=== PATIENT | male | born 1980 | race Hispanic/Latino ===

== ENCOUNTER 2022-04-06 13:47 | Observation (INO) | payer SELFPAY ==
[2022-04-06 14:01] LABS: #Lymphocytes 1.2 thou/uL (1.20-3.40); #Monocytes 0.8 thou/uL (0.11-0.59); #Neutrophils 6.4 thou/uL (1.40-6.50); %Basophils 0.4 % (0.0-1.0); %Eosinophils 0.3 % (0.0-10.0); %Lymphocytes 14.5 % (21.0-51.0); %Monocytes 9.3 % (0.0-10.0); %Neutrophils 75.5 % (42.0-75.0); Hemoglobin 16.9 g/dL (14.0-18.0); Mean Corpuscular HGB CONC 33.7 g/dL (32.0-36.0); Mean Platelet Volume 8.3 fL (7.4-10.4); Platelet Count 194 thou/uL (130-400); RBC Distribution Width 11.7 % (11.5-14.5); Red Blood Cell (RBC) Count 4.98 mill/uL (4.70-6.10); White Blood Cell (WBC) Count 8.4 thou/uL (4.8-10.8)
[2022-04-06 14:21] LABS: Acetaminophen Less than 10.0 mcg/mL (10.0-30.0); Alcohol 26 mg/dL (Less than 10); Salicylate Less than 8.0 mg/dL (15.0-30.0)
[2022-04-06 14:23] LABS: Albumin 5.1 g/dL (3.5-5.0); Anion Gap 27 mmol/L (10-20); BUN (Urea Nitrogen) 19 mg/dL (8.9-20.6); Bilirubin, Total 2.3 mg/dL (0.2-1.2); Calc. Creatinine Clearance 0 mL/min (70-130); Calcium 10.9 mg/dL (7.8-10.44); Carbon Dioxide 12 mmol/L (22-29); Chloride 108 mmol/L (98-107); Estimated GFR 26; Globulin 4.1 g/dL (2.4-3.5); Glucose 177 mg/dL (70-105); Potassium 3.5 mmol/L (3.5-5.1); Protein, Total 9.2 g/dL (6.0-8.3); Sodium 143 mmol/L (136-145)
[2022-04-06 14:24] LABS: ALT (SGPT) 147 U/L (8-55); AST (SGOT) 267 U/L (5-34); Alkaline Phosphatase 97 U/L (40-110); CK (CPK) 326 U/L (30-200); Lipase 112 U/L (8-78)
[2022-04-06] MEDS ORDERED: Iopamidol-370 76% 500 ML 1 ML ONE (16:03)
[2022-04-06 17:31] LABS: Troponin I 0.017 ng/mL (< 0.028)
[2022-04-06] MEDS ORDERED: Senokot S 8.6-50 MG TAB PO PRN (17:56)
[2022-04-06] MEDS ORDERED: Lorazepam 1 MG TAB PO PRN (17:56)
[2022-04-06] MEDS ORDERED: Ondansetron PF 4 MG/2 ML Vial IVP PRN (17:56)
[2022-04-06] MEDS ORDERED: Lorazepam 2 MG/ML VIAL SLOW IVP PRN (17:56)
[2022-04-06] MEDS ORDERED: Electrolyte Replacement Protocol 1 EACH FS SCH (18:00)
[2022-04-06] MEDS ORDERED: Melatonin 3 MG TAB PO PRN (18:05)
[2022-04-06 18:06] VITALS: BMI 32.1
[2022-04-06 18:11] LABS: Bacteria/HPF None Seen HPF (None Seen); Bilirubin Negative (Negative); Blood, Urine 2+ (Negative); Clarity Clear (Clear); Glucose, Urine (Dipstick) 50 mg/dL (Negative); Ketone, Urine Negative (Negative); Leukocyte Negative Leu/uL (Negative); Nitrite Negative (Negative); Protein, Urine (Dipstick) 100 mg/dL (Neg-Trace); RBC/HPF 0-3 HPF (0-3); Squamous Epithelial 0-3 HPF (0-3); Urobilinogen Normal mg/dL (Less than 2); pH, Urine 5.5 (5.0-9.0)
[2022-04-06 18:12] LABS: Specific Gravity, Urine 1.055 (1.002-1.036)
[2022-04-06] MEDS ORDERED: Nitroglycerin 0.4 MG TAB (25 Tab Bottle) SL PRN (18:16)
[2022-04-06 18:17] LABS: Amphetamine Detected (NotDetected); Barbiturates Screen Not Detected (NotDetected); Benzodiazepine Screen Not Detected (NotDetected); Cocaine Metabolite Screen Not Detected (NotDetected); Methadone Not Detected (NotDetected); Methamphetamine Detected (NotDetected); Opiate Screen Not Detected (NotDetected); Oxycodone Screen Not Detected (NotDetected); Phencyclidine (PCP) Not Detected (NotDetected); THC/Cannabinoid Screen Not Detected (NotDetected); Tricyclic Screen Not Detected (NotDetected)
[2022-04-06] MEDS: Sodium Chloride 0.9% 1,000 ML IV SCH (18:41)
[2022-04-06] MEDS ORDERED: Multivitamins, Adult 10 ML, Folic Acid 1 MG, Thiamine HCl 100 MG in Dextrose 5 %-0.45 %... IV SCH (18:45)
[2022-04-06] MEDS ORDERED: Multivit, Therapeutic 1 TAB PO SCH (19:15)
[2022-04-06] MEDS: Lorazepam 1 MG TAB PO SCH (19:40)
[2022-04-06 19:57] LABS: Troponin I 0.026 ng/mL (< 0.028)
[2022-04-06] MEDS ORDERED: Aspirin Chewable 81 MG TAB PO SCH (20:29)
[2022-04-06] MEDS ORDERED: Pantoprazole 40 MG VIAL IVP SCH (21:00)
[2022-04-06 22:34] LABS: Hemoglobin A1c 6.5 % (4.0-6.0)
[2022-04-06 22:44] LABS: Magnesium 2.2 mg/dL (1.6-2.6); Phosphorus 3.4 mg/dL (2.3-4.7)
[2022-04-06 22:51] LABS: Anion Gap 13 mmol/L (10-20); BUN (Urea Nitrogen) 20 mg/dL (8.9-20.6); Calc. Creatinine Clearance 108 mL/min (70-130); Calcium 8.6 mg/dL (7.8-10.44); Carbon Dioxide 22 mmol/L (22-29); Chloride 108 mmol/L (98-107); Estimated GFR 82; Glucose 121 mg/dL (70-105); Potassium 3.6 mmol/L (3.5-5.1); Sodium 139 mmol/L (136-145)
[2022-04-07] MEDS: Lorazepam 1 MG TAB PO SCH ×3 (00:46→12:59)
[2022-04-07 04:43] LABS: #Basophils 0.1 thou/uL (0.0-0.2); #Eosinphils 0.1 thou/uL (0.0-0.7); #Lymphocytes 2.1 thou/uL (1.20-3.40); #Monocytes 0.9 thou/uL (0.11-0.59); #Neutrophils 3.1 thou/uL (1.40-6.50); %Lymphocytes 33.7 % (21.0-51.0); %Monocytes 13.9 % (0.0-10.0); %Neutrophils 49.4 % (42.0-75.0); Hemoglobin 13.6 g/dL (14.0-18.0); Mean Corpuscular HGB CONC 34.7 g/dL (32.0-36.0); Mean Corpuscular Hemoglobin 35.6 pg (27.0-31.0); Mean Platelet Volume 8.2 fL (7.4-10.4); Platelet Count 128 thou/uL (130-400); RBC Distribution Width 11.7 % (11.5-14.5); Red Blood Cell (RBC) Count 3.81 mill/uL (4.70-6.10); White Blood Cell (WBC) Count 6.2 thou/uL (4.8-10.8)
[2022-04-07 05:04] LABS: ALT (SGPT) 90 U/L (8-55); AST (SGOT) 110 U/L (5-34); Albumin 3.6 g/dL (3.5-5.0); Alkaline Phosphatase 73 U/L (40-110); Anion Gap 12 mmol/L (10-20); BUN (Urea Nitrogen) 19 mg/dL (8.9-20.6); Bilirubin, Total 1.3 mg/dL (0.2-1.2); Calc. Creatinine Clearance 132 mL/min (70-130); Calcium 8.3 mg/dL (7.8-10.44); Carbon Dioxide 21 mmol/L (22-29); Cardiac Risk 3.9 (Less than 4.5); Chloride 109 mmol/L (98-107); Cholesterol 148 mg/dl (< 200 Desired); Estimated GFR 104; Globulin 2.8 g/dL (2.4-3.5); Glucose 120 mg/dL (70-105); HDL Cholesterol 38 mg/dL (>60 Neg Risk); LDL Cholesterol, Calculated 79 mg/dL; Potassium 3.5 mmol/L (3.5-5.1); Protein, Total 6.4 g/dL (6.0-8.3); Sodium 138 mmol/L (136-145); Triglycerides 154 mg/dL (Less than 150)
[2022-04-07] MEDS: Sodium Chloride 0.9% 1,000 ML IV SCH (08:30)
[2022-04-07] MEDS ORDERED: Pantoprazole 40 MG VIAL IVP SCH (09:00)
[2022-04-07] MEDS ORDERED: Thiamine 100 MG TAB PO SCH (09:00)
[2022-04-07] MEDS ORDERED: Multivit, Therapeutic 1 TAB PO SCH (09:00)
[2022-04-07] MEDS ORDERED: Folic Acid 1 MG TAB PO SCH (09:00)
[2022-04-07 11:12] VITALS: BP 137/81; TEMP 97.8
[2022-04-07 11:25] LABS: Syphilis Antibody Nonreactive (Nonreactive); Syphilis Antibody Index 0.05 S/CO (<1.00 Non-Reactive)
[2022-04-07] MEDS ORDERED: ADENOSINE 60 MG/20 ML VIAL ONE (12:21)
[2022-04-07] MEDS ORDERED: Lorazepam 1 MG TAB PO PRN (17:56)
[2022-04-08] MEDS ORDERED: Lorazepam 1 MG TAB PO PRN (17:56)
[2022-04-08] MEDS ORDERED: Lorazepam 0.5 MG TAB PO SCH (18:00)
[2022-04-09] MEDS ORDERED: Lorazepam 0.5 MG TAB PO PRN (17:56)
== END 2022-04-07 15:48 | disposition home or self-care (01) ==
LOC: ERS 13:47 → 2SW 15:32
PROVIDERS: ADMIT Internal Medicine; ATTEND Internal Medicine
DX: R07.89 Other chest pain (principal); N17.9 Acute kidney failure, unspecified; F10.10 Alcohol abuse, uncomplicated; E87.2 Acidosis; R74.01 Elevation of levels of liver transaminase levels; M62.82 Rhabdomyolysis; E86.0 Dehydration; E83.52 Hypercalcemia; E11.65 Type 2 diabetes mellitus with hyperglycemia; I10 Essential (primary) hypertension; Z79.899 Other long term (current) drug therapy; Z20.822 Contact with and (suspected) exposure to COVID-19; Y90.1 Blood alcohol level of 20-39 mg/100 ml
CPT/HCPCS: 36415; 36416; 71275; 74174; 78452; 80053; 80061; 80306; 80307; 81003; 81015; 82140; 82550; 83036; 83690; 83735; 83880; 84100; 84443; 84484; 85025; 86780; 93005; 93017; 94760; 96360; 96361; 96365; 96366; 96375; 96376; A9500; C9113; G0378; J0153; J3411; J7042; J7050; Q9967; U0003; U0005

== ENCOUNTER 2023-08-26 21:33 | Emergency (ER) | payer OTHER, SELFPAY ==
[2023-08-26] MEDS ORDERED: Ketorolac Tromethamine 30 MG/ML VIAL ONE (22:20)
[2023-08-26] MEDS ORDERED: HYDROcodone/Acetaminophen 10/325 mg Tablet ONE (22:21)
== END 2023-08-27 01:04 | disposition home or self-care (01) ==
LOC: ERS 21:33
DX: S52.572A Other intraarticular fracture of lower end of left radius, initial encounter for closed fracture (principal); I10 Essential (primary) hypertension; W01.0XXA Fall on same level from slipping, tripping and stumbling without subsequent striking against object, initial encounter
CPT/HCPCS: 29125; 96372; J1885

== ENCOUNTER 2023-10-26 10:59 | Emergency (ER) | payer SELFPAY ==
[2023-10-26] MEDS ORDERED: Ketorolac Tromethamine 30 MG (1 mL) VIAL ONE (11:52)
== END 2023-10-26 13:15 | disposition home or self-care (01) ==
LOC: ERS 10:59
DX: M25.532 Pain in left wrist (principal)
CPT/HCPCS: 96372; J1885